=== PATIENT | female | born 2005 | race African-American/Black ===

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

== ENCOUNTER 2024-06-05 12:15 | Emergency (ER) | payer MEDICAID ==
[~2024-06-05] VITALS: Ht 165.1 cm; Wt 60.0 kg
[2024-06-05 12:22] VITALS: O2SAT 99
[2024-06-05 12:53] LABS: BASOPHILS % 0.3 % (0.0-2.0); EOSINOPHILS % 2.1 % (0.0-5.0); HEMATOCRIT. 33.5 % (36.0-48.0); HEMOGLOBIN. 11.1 g/dL (12.0-16.0); LYMPHOCYTES % 29.3 % (20.0-50.0); MEAN CORPUSCULAR HEMOGLOBIN 30.8 pg (28.0-32.0); MEAN CORPUSCULAR HGB CONC 33.1 g/dL (31.0-37.0); MEAN CORPUSCULAR VOLUME 93.2 fL (81.0-99.0); MEAN PLATELET VOLUME 9.7 fl (7.4-10.4); MONOCYTES % 1.8 % (2.0-8.0); NEUTROPHILS % 66.5 % (40.0-76.0); PLATELET 219 x1000/uL (130-400); RED CELL DISTRIBUTION WIDTH 14.6 % (11.6-14.6); WHITE BLOOD COUNT 5.4 x1000/uL (4.5-11.0)
[2024-06-05 13:06] LABS: CHLORIDE 111 mEq/L (98-107); INR 1.1; POTASSIUM 3.8 mEq/L (3.5-5.1); PROTHROMBIN TIME 12.2 sec (9.6-11.0); SODIUM 140 mEq/L (136-145)
[2024-06-05 13:07] LABS: CALCIUM 9.3 mg/dL (8.7-10.4); CARBON DIOXIDE 21 mEq/L (21-32)
[2024-06-05 13:12] LABS: CREATININE 0.9 mg/dL (0.6-1.0); GLUCOSE 85 mg/dL (70-105)
[2024-06-05 13:13] LABS: UREA NITROGEN BLOOD 9 mg/dL (9-23)
[2024-06-05 13:14] LABS: ALANINE AMINOTRANSFERASE 20 IU/L (10-49); ALBUMIN 4.6 g/dL (3.2-4.8); ASPARTATE AMINOTRANSFERASE 25 IU/L (<34); BILIRUBIN DIRECT 0.3 mg/dL (<=3.0)
[2024-06-05 13:15] LABS: BILIRUBIN TOTAL 0.8 mg/dL (0.1-1.0); PROTEIN TOTAL 7.3 g/dL (6.0-8.3)
[2024-06-05] MEDS ORDERED: ONDA4TAB11 PO (13:39)
[2024-06-05] MEDS: ONDANSETRON 4MG ODT PO ONE (13:50)
[2024-06-05 13:59] LABS: CLARITY URINE CLOUDY (CLEAR); COLOR URINE DARK YELLOW (YELLOW); GLUCOSE URINE NEGATIVE (NEGATIVE); KETONES URINE 1+ (NEGATIVE); LEUKOCYTE ESTERASE URINE TRACE (NEGATIVE); NITRITE URINE NEGATIVE (NEGATIVE); OCCULT BLOOD URINE NEGATIVE (NEGATIVE); PH URINE 5.5 (4.5-8.0); PROTEIN URINE 1+ (NEGATIVE); SPECIFIC GRAVITY URINE 1.034 (1.005-1.030)
[2024-06-05 14:37] LABS: MUCUS URINE 1+ /lpf (< = 2+); SQUAMOUS EPITHELIAL CELL URINE 2+ /lpf (RARE/1+)
[2024-06-05 14:38] LABS: BACTERIA URINE 3+; RBC URINE 0-2 /hpf (0-2); WBC URINE 0-2 /hpf (0-2)
[2024-06-05 15:21] LABS: HCG SCREEN NEGATIVE
[2024-06-05 16:31] VITALS: BP 110/70; PULSE 80; RESP 15; TEMP 98
== END 2024-06-05 16:42 | disposition home or self-care (01) ==
LOC: ER 12:32
DX: B34.9 Viral infection, unspecified (principal); K92.0 Hematemesis; Z88.0 Allergy status to penicillin; Z91.013 Allergy to seafood
CPT/HCPCS: 99284; 71045; 80076; 80048; 81003; 84703; 87430; 83690; 85025; 85610; 86850; 86900; 86901; 87070; 36415; Q0162